=== PATIENT | female | born 1955 | race Caucasian/White ===

== ENCOUNTER → 2017-09-12 | Outpatient (CLI) | payer OTHER ==
[~2017-09-12] MED LIST: ALLOPURINOL300 M1 PO; AMLO5TAB PO; CORGARD 40MG TA40 MG PO; FERROUS SULFATE65 MG PO; KLOR-CON M2020 ME1 PO; TRIAMT/HCTZ CAP 37.; VERAPAMIL HCL240 MG; [UNRECOGNIZED DRUG - CODE] XX
--- NOTE | 2017-09-12 16:50 | RADIOLOGY REPORT PS360 ---
EXAM: CERVICAL SPINE 4 OR 5 VIEWS HISTORY: GAIT DISTURBANCE, MUSCLE SPASTICITY, B12 DEFICIENCY ORDERING PHYSICIAN: JUAN COFFEY PATIENT AGE: 62 years COMPARISON: None FINDINGS: There is normal alignment. Degenerative disc disease is present at C5-C6 and C6-C7 with small endplate osteophytes. No fracture or dislocation apparent. Minimal bilateral foraminal narrowing at C5-C6. No lytic or blastic change. IMPRESSION: Mild cervical spondylosis as described above
--- NOTE | 2017-09-12 17:04 | RADIOLOGY REPORT PS360 ---
THORACIC SPINE AP LAT-2VIEW CLINICAL INDICATION: GAIT DISTURBANCE, MUSCLE SPASTICITY, B12 DEFICIENCY ORDERING PHYSICIAN: JUAN COFFEY PATIENT AGE: 62 years COMPARISON: None FINDINGS: There is normal alignment. There is generalized osteopenia with degenerative disc disease and endplate osteophytes in the lower thoracic spine. No fracture or dislocation. No lytic or blastic change. There is elevated right hemidiaphragm with right basilar atelectasis. Overall no significant change 02/21/1716 IMPRESSION: 1. No change thoracic spondylosis. No acute fracture. 2. Persistent elevated right hemidiaphragm with right basilar atelectasis
--- NOTE | 2017-09-12 17:07 | RADIOLOGY REPORT PS360 ---
EXAM: LUMBAR SPINE 5 VIEWS HISTORY: GAIT DISTURBANCE, MUSCLE SPASTICITY, B12 DEFICIENCY ORDERING PHYSICIAN: JUAN COFFEY PATIENT AGE: 62 years COMPARISON: None FINDINGS: Moderate chronic wedging of L3 with loss of height anteriorly of approximately 40%. Degenerative disc disease is present at L4-L5 and L5-S1. There is 5 mm anterolisthesis of L4. There is mild wedge compression changes of L5 with loss of height anteriorly of approximately 20%. This is age indeterminate and could be acute. MRI may be of further value.. No lytic or blastic change. Generalized facet arthritic changes are present IMPRESSION: 1. Chronic wedge compression changes of L3. 2. Mild wedge compression changes of L5 age-indeterminate. 3. Degenerative disc disease L4-L5 and L5-S1 with 5 mm anterolisthesis of L4 along with facet arthritic changes.
== END ==
LOC: RAD 15:57
DX: R26.9 Unspecified abnormalities of gait and mobility (principal); E63.8 Other specified nutritional deficiencies; M48.061 Spinal stenosis, lumbar region without neurogenic claudication